=== PATIENT | female | born 1950 | race African-American/Black ===

== ENCOUNTER 2017-05-25 23:13 | Emergency (ER) | payer BC, OTHER ==
[~2017-05-25] VITALS: Ht 162.6 cm; Wt 65.9 kg
[~2017-05-25 23:13] MED LIST: CYCL10 PO; DIOVAN; LEVO100T4; PRED5
[2017-05-25] MEDS ORDERED: HYDR25TA PO (23:23)
[2017-05-25] MEDS ORDERED: HYDR10TA31 PO (23:23)
[2017-05-25] MEDS ORDERED: METO50 PO (23:23)
[2017-05-25] MEDS ORDERED: PRED5 PO (23:23)
[2017-05-25] MEDS ORDERED: LOSA50TA37 PO (23:23)
[2017-05-25] MEDS ORDERED: LEVO100 PO (23:23)
[2017-05-25] MEDS ORDERED: OxyCODONE HCL/ACETAMINOPHEN 5-325 MG TABLET PO ONE (23:45)
[2017-05-25] MEDS ORDERED: METHOCARBAMOL 500 MG TABLET PO ONE (23:45)
[2017-05-26 01:18] VITALS: BP 122/76
[2017-05-28] MEDS ORDERED: CYCL10 PO (13:57)
[2017-05-28] MEDS ORDERED: HYDR200T4 PO (13:57)
[2017-05-28] MEDS ORDERED: ASPI81 PO (13:57)
[2017-05-28] MEDS ORDERED: PRED5 PO (13:57)
[2017-05-28] MEDS ORDERED: LOSA50TA37 PO (13:57)
[2017-05-28] MEDS ORDERED: IBUP-2070 PO (13:57)
== END 2017-05-26 01:23 | disposition home or self-care (01) ==
LOC: EMS 23:15
DX: M54.12 Radiculopathy, cervical region (principal); I10 Essential (primary) hypertension; E03.9 Hypothyroidism, unspecified; Z88.0 Allergy status to penicillin; Z88.5 Allergy status to narcotic agent
CPT/HCPCS: 99283

== ENCOUNTER 2017-05-29 06:35 | Day surgery (SDC) | payer BC, OTHER ==
[~2017-05-29] VITALS: Ht 151.1 cm; Wt 65.5 kg
[~2017-05-29 06:35] MED LIST changes: +ASPI81 PO; -DIOVAN; +HYDR200T4 PO; +HYDR25TA PO; +IBUP-2070 PO; +LEVO100 PO; -LEVO100T4; +LOSA50TA37 PO; +METO50 PO; -PRED5; +PRED5 PO; +SODIUM CHLORIDE 0.9% 1,000 ML IV ONE
[2017-05-29] MEDS ORDERED: OXYC-38 PO (07:03)
== END 2017-05-29 09:40 | disposition home or self-care (01) ==
LOC: SURGERY 06:35
PROVIDERS: ATTEND Specialist
DX: K57.90 Diverticulosis of intestine, part unspecified, without perforation or abscess without bleeding (principal); K63.3 Ulcer of intestine; K64.1 Second degree hemorrhoids; D50.9 Iron deficiency anemia, unspecified; J44.9 Chronic obstructive pulmonary disease, unspecified; I10 Essential (primary) hypertension; K21.9 Gastro-esophageal reflux disease without esophagitis; E03.9 Hypothyroidism, unspecified; D86.9 Sarcoidosis, unspecified; F41.9 Anxiety disorder, unspecified; Z88.0 Allergy status to penicillin; Z88.8 Allergy status to other drugs, medicaments and biological substances; Z90.49 Acquired absence of other specified parts of digestive tract; Z98.890 Other specified postprocedural states; Z98.49 Cataract extraction status, unspecified eye; Z87.891 Personal history of nicotine dependence; Z79.01 Long term (current) use of anticoagulants; Z87.39 Personal history of other diseases of the musculoskeletal system and connective tissue
CPT/HCPCS: 45380; J7030; 88305

== ENCOUNTER 2017-06-19 06:30 | Day surgery (SDC) | payer BC, OTHER ==
[~2017-06-19] VITALS: Ht 152.4 cm; Wt 65.0 kg
[~2017-06-19 06:30] MED LIST changes: -ASPI81 PO; +FLUC100T PO; +OXYC-38 PO; -PRED5 PO
[2017-06-19] MEDS ORDERED: PROPOFOL 1% 20 ML VIAL IVP ONE (06:31)
[2017-06-19] MEDS ORDERED: SODIUM TETRADECYL SULFATE 3% 60 MG/2 ML VIAL IVP ONE (07:06)
== END 2017-06-19 08:55 | disposition home or self-care (01) ==
LOC: SURGERY 06:30
PROVIDERS: ATTEND Specialist
DX: K44.9 Diaphragmatic hernia without obstruction or gangrene (principal); K29.70 Gastritis, unspecified, without bleeding; K21.9 Gastro-esophageal reflux disease without esophagitis; D50.9 Iron deficiency anemia, unspecified; I10 Essential (primary) hypertension; D86.9 Sarcoidosis, unspecified; Z88.6 Allergy status to analgesic agent; Z88.0 Allergy status to penicillin; E03.9 Hypothyroidism, unspecified
CPT/HCPCS: 43239; 88305; 88312; J2704; J7030

== ENCOUNTER 2017-07-04 04:28 | Emergency (ER) | payer BC, OTHER ==
[~2017-07-04] VITALS: Ht 162.6 cm; Wt 66.0 kg
[~2017-07-04 04:28] MED LIST changes: -SODIUM CHLORIDE 0.9% 1,000 ML IV ONE
[2017-07-04] MEDS ORDERED: KETOROLAC TROMETHAMINE 30 MG/ML VIAL IVP ONE (06:15)
[2017-07-04] MEDS ORDERED: MORPHINE SULFATE 4 MG/ML SYRINGE IVP ONE (06:15)
[2017-07-04 07:01] VITALS: BP 143/92
== END 2017-07-04 07:50 | disposition home or self-care (01) ==
LOC: EMS 04:29
DX: M62.838 Other muscle spasm (principal); I10 Essential (primary) hypertension; E03.9 Hypothyroidism, unspecified; Z88.0 Allergy status to penicillin; Z88.5 Allergy status to narcotic agent
CPT/HCPCS: 96374; 96375; 99284; J1885; J2270

== ENCOUNTER 2017-12-20 12:10 | Emergency (ER) | payer MEDICARE, OTHER ==
[~2017-12-20] VITALS: Ht 157.5 cm; Wt 63.6 kg
[~2017-12-20 12:10] MED LIST changes: -FLUC100T PO
[2017-12-20 12:59] VITALS: BP 127/79
[2017-12-20] MEDS ORDERED: PredniSONE 20 MG TABLET PO ONE (13:30)
== END 2017-12-20 13:48 | disposition home or self-care (01) ==
LOC: EMS 12:11
DX: T63.441A Toxic effect of venom of bees, accidental (unintentional), initial encounter (principal); E03.9 Hypothyroidism, unspecified; I10 Essential (primary) hypertension; J45.909 Unspecified asthma, uncomplicated; M79.7 Fibromyalgia; Z88.0 Allergy status to penicillin; Z88.5 Allergy status to narcotic agent; Z90.49 Acquired absence of other specified parts of digestive tract; Y92.89 Other specified places as the place of occurrence of the external cause
CPT/HCPCS: 99283; J7512

== ENCOUNTER 2018-03-17 12:17 | Emergency (ER) | payer MEDICARE ==
[~2018-03-17] VITALS: Ht 154.9 cm; Wt 60.9 kg
[~2018-03-17 12:17] MED LIST changes: -CYCL10 PO; -IBUP-2070 PO; -OXYC-38 PO
[2018-03-17] MEDS ORDERED: FLUC100T PO (12:59)
[2018-03-17] MEDS ORDERED: LEVO2.5S4 PO (12:59)
[2018-03-17] MEDS ORDERED: AZIT250T9 PO (12:59)
[2018-03-17] MEDS ORDERED: TIZA4TAB4 PO (12:59)
[2018-03-17] MEDS ORDERED: HYDR-4061 PO (12:59)
[2018-03-17] MEDS ORDERED: ASPI-556 PO (12:59)
[2018-03-17] MEDS ORDERED: MethylPREDNISolone SOD SUCC 125 MG/2 ML VIAL IVP ONE (13:45)
[2018-03-17] MEDS ORDERED: IPRATROPIUM BROMIDE 0.5 MG/2.5 ML NEB SOLUTION NEB ONE (13:45)
[2018-03-17] MEDS ORDERED: ASPIRIN 81 MG CHEWABLE TABLET PO ONE (13:45)
[2018-03-17] MEDS ORDERED: KETOROLAC TROMETHAMINE 30 MG/ML VIAL IVP ONE (13:45)
[2018-03-17] MEDS ORDERED: ALBUTEROL SULFATE 5 MG/ML 20 ML NEB SOLN [BULK] NEB ONE (13:45)
[2018-03-17] MEDS ORDERED: 0.9% SODIUM CHLORIDE 15 ML NEB SOLUTION NEB ONE (14:16)
[2018-03-17 14:20] LABS: BASOPHILS % (AUTO) 0.1 % (0.0-2.0); EOSINOPHILS % (AUTO) 0.1 % (1.0-6.0); HEMATOCRIT 26.4 % (36-46); HEMOGLOBIN 8.6 g/dL (12.0-16.0); LYMPHOCYTES # (AUTO) 0.3 K/uL (1.0-4.8); LYMPHOCYTES % (AUTO) 1.5 % (22.0-44.0); MEAN CORPUSCULAR HEMOGLOBIN 27.6 pg (26.0-34.0); MEAN CORPUSCULAR HGB CONC 32.6 G/dL (31.0-37.0); MEAN CORPUSCULAR VOLUME 85 fL (80-100); MONOCYTES # (AUTO) 1.6 K/uL (0.1-1.0); MONOCYTES % (AUTO) 8.3 % (2.0-9.0); NEUTROPHILS # (AUTO) 17.4 K/uL (1.8-7.7); PLATELET COUNT (AUTO) 454 K/uL (150-450); RED BLOOD CELL COUNT(AUTO) 3.12 MIL/uL (4.00-5.20); RED CELL DISTRIBUTION WIDTH 20.1 % (11.5-14.5)
[2018-03-17 14:37] LABS: ANION GAP 5 mmol/L (8-16); CALCIUM, TOTAL 10.3 mg/dL (8.8-10.5); CARBON DIOXIDE 32 mmol/L (22-29); CHLORIDE 98 mmol/L (98-107); CREATININE 0.74 mg/dL (0.60-1.30); GLOMERULAR FILTR. RATE CALC > 60 mL/min (>60); GLUCOSE,RANDOM 146 mg/dL (70-110); POTASSIUM 3.8 mmol/L (3.5-5.1); SODIUM SERUM 135 mmol/L (136-145); UREA NITROGEN, BLOOD 18 mg/dL (7-18)
[2018-03-17 14:41] LABS: B-TYPE NATRIURETIC PEPTIDE 139 pg/mL (0-100)
[2018-03-17 14:44] LABS: ALANINE AMINOTRANSFERASE 18 U/L (12-78); ALBUMIN 2.7 g/dL (3.4-5.0); ALKALINE PHOSPHATASE 95 U/L (46-116); ASPARTATE AMINOTRANSFERASE 12 U/L (15-37); BILIRUBIN,TOTAL 0.3 mg/dL (0.1-1.0); CREATINE KINASE, TOTAL 30 U/L (26-192); TOTAL PROTEIN, SERUM 7.8 g/dL (6.4-8.2)
[2018-03-17] MEDS ORDERED: LEVO5TAB13 PO (15:41)
[2018-03-17] MEDS ORDERED: CefTRIAXone SODIUM 1 GM in DEXTROSE 5%-WATER 10 ML IV ONE (15:45)
[2018-03-17] MEDS ORDERED: ACETAMINOPHEN 325 MG TABLET PO PRN (15:45)
[2018-03-17] MEDS ORDERED: ONDANSETRON HCL 4 MG/2 ML VIAL IVP PRN (15:45)
[2018-03-17] MEDS ORDERED: 0.9% SODIUM CHLORIDE 10 ML SYRINGE IVP PRN (15:45)
[2018-03-17 16:16] LABS: APPEARANCE,URINE CLEAR (CLEAR); BILIRUBIN,URINE NEGATIVE (NEGATIVE); GLUCOSE, URINE (UA) NEGATIVE (NEGATIVE); KETONES,URINE NEGATIVE (NEGATIVE); LEUKOCYTE ESTERASE ,URINE NEGATIVE (NEGATIVE); NITRATE,URINE NEGATIVE (NEGATIVE); OCCULT BLOOD,URINE NEGATIVE (NEGATIVE); PROTEIN,URINE POS 1+ (NEGATIVE)
[2018-03-17] MEDS ORDERED: SODIUM CHLORIDE 0.9% 1,000 ML IV ONE (17:15)
[2018-03-17] MEDS ORDERED: SODIUM CHLORIDE 0.9% 2,000 ML IV ONE (17:15)
[2018-03-17] MEDS ORDERED: METOPROLOL TARTRATE 50 MG TABLET PO SCH (17:45)
[2018-03-17] MEDS ORDERED: LEVOTHYROXINE SODIUM 100 MCG TABLET PO SCH (17:45)
[2018-03-17] MEDS ORDERED: HYDROXYCHLOROQUINE SULFATE 200 MG TABLET PO SCH (17:45)
[2018-03-17] MEDS ORDERED: HYDROCHLOROTHIAZIDE 25 MG TABLET PO SCH (17:45)
[2018-03-17] MEDS ORDERED: FLUCONAZOLE 100 MG TABLET PO SCH (17:45)
[2018-03-17] MEDS ORDERED: ALBUTEROL SULFATE 2.5 MG/0.5 ML NEB SOLUTION NEB PRN (17:45)
[2018-03-17] MEDS ORDERED: TiZANidine HCL 4 MG TABLET PO PRN (17:45)
[2018-03-17] MEDS ORDERED: LOSARTAN POTASSIUM 50 MG TABLET PO SCH (17:45)
[2018-03-17 18:59] VITALS: BP 134/87
[2018-03-17] MEDS ORDERED: IPRATROPIUM BROMIDE 0.5 MG/2.5 ML NEB SOLUTION NEB SCH (20:00)
[2018-03-17] MEDS ORDERED: ALBUTEROL SULFATE 2.5 MG/0.5 ML NEB SOLUTION NEB SCH (20:00)
[2018-03-17] MEDS ORDERED: MethylPREDNISolone SOD SUCC 125 MG/2 ML VIAL IVP SCH (21:00)
== END 2018-03-17 21:41 | disposition short-term general hospital (02) ==
LOC: EMS 12:19
DX: A41.9 Sepsis, unspecified organism (principal); J18.9 Pneumonia, unspecified organism; J45.909 Unspecified asthma, uncomplicated; I10 Essential (primary) hypertension; E03.9 Hypothyroidism, unspecified; Z88.5 Allergy status to narcotic agent; Z88.0 Allergy status to penicillin; Z91.030 Bee allergy status
CPT/HCPCS: 36415; 71046; 80053; 81003; 82550; 83605; 83880; 84484; 85025; 87040; 87077; 87147; 87186; 87205; 93005; 94640; 96365; 96366; 96375; 99285; J0696; J1885; J2930; J7030; J7060

== ENCOUNTER → 2019-05-20 | Outpatient (CLI) | payer MEDICARE ==
[~2019-05-20] MED LIST changes: +FLUT1BLS3 IH; +LEVO5TAB13 PO; -LOSA50TA37 PO; +LOSA50TA64 PO
== END | disposition home or self-care (01) ==
LOC: RADPV 09:17
PROVIDERS: ATTEND Internal Medicine
DX: M81.0 Age-related osteoporosis without current pathological fracture (principal)
CPT/HCPCS: 77080

== ENCOUNTER 2020-06-30 17:33 | Inpatient (IN) | payer MEDICARE ==
[~2020-06-30] VITALS: Ht 154.9 cm; Wt 62.3 kg
[~2020-06-30 17:33] MED LIST changes: +HYDR-1475 PO; -HYDR25TA PO; +LOSA50TA37 PO; -LOSA50TA64 PO
[2020-06-30] MEDS ORDERED: TIZA2CAP PO (17:37)
[2020-06-30 18:25] LABS: BASOPHILS % (AUTO) 0.7 % (0.0-2.0); EOSINOPHILS % (AUTO) 1.7 % (1.0-6.0); HEMATOCRIT 26.5 % (36-46); HEMOGLOBIN 8.3 g/dL (12.0-16.0); LYMPHOCYTES # (AUTO) 0.5 K/uL (1.0-4.8); MEAN CORPUSCULAR HEMOGLOBIN 28.8 pg (26.0-34.0); MEAN CORPUSCULAR HGB CONC 31.2 G/dL (31.0-37.0); MEAN CORPUSCULAR VOLUME 92 fL (80-100); MONOCYTES # (AUTO) 1.1 K/uL (0.1-1.0); MONOCYTES % (AUTO) 8.7 % (2.0-9.0); NEUTROPHILS # (AUTO) 10.4 K/uL (1.8-7.7); NEUTROPHILS % (AUTO) 84.9 % (40.0-70.0); PLATELET COUNT (AUTO) 510 K/uL (150-450); RED BLOOD CELL COUNT(AUTO) 2.87 MIL/uL (4.00-5.20); RED CELL DISTRIBUTION WIDTH 16.3 % (11.5-14.5)
[2020-06-30 18:37] LABS: PROTHROMBIN TIME 10.5 SEC (9.4-11.6)
[2020-06-30 18:41] LABS: ANION GAP 10 mmol/L (8-16); CALCIUM, TOTAL 10.4 mg/dL (8.8-10.5); CARBON DIOXIDE 29 mmol/L (22-29); CHLORIDE 104 mmol/L (98-107); CREATININE 0.79 mg/dL (0.60-1.30); GLOMERULAR FILTR. RATE CALC > 60 mL/min (>60); GLUCOSE,RANDOM 132 mg/dL (70-110); POTASSIUM 3.4 mmol/L (3.5-5.1); SODIUM SERUM 143 mmol/L (136-145); UREA NITROGEN, BLOOD 14 mg/dL (7-18)
[2020-06-30 18:47] LABS: ALANINE AMINOTRANSFERASE 22 U/L (12-78); ALBUMIN 3.8 g/dL (3.4-5.0); ALKALINE PHOSPHATASE 73 U/L (46-116); ASPARTATE AMINOTRANSFERASE 23 U/L (15-37); BILIRUBIN,TOTAL 0.3 mg/dL (0.1-1.0); CREATINE KINASE, TOTAL ONLY 74 U/L (26-192); TOTAL PROTEIN, SERUM 7.1 g/dL (6.4-8.2)
[2020-06-30 19:10] LABS: B-TYPE NATRIURETIC PEPTIDE 18 pg/mL (0-100)
[2020-06-30] MEDS ORDERED: SODIUM CHLORIDE 0.9% 1,000 ML IV ONE (19:15)
[2020-06-30 19:34] LABS: APPEARANCE,URINE CLEAR (CLEAR); GLUCOSE, URINE (UA) NEGATIVE (NEGATIVE); KETONES,URINE NEGATIVE (NEGATIVE); LEUKOCYTE ESTERASE ,URINE NEGATIVE (NEGATIVE); NITRATE,URINE NEGATIVE (NEGATIVE); OCCULT BLOOD,URINE NEGATIVE (NEGATIVE); PROTEIN,URINE NEGATIVE (NEGATIVE)
[2020-06-30 19:43] LABS: BILIRUBIN,URINE PRELIM. POSITIVE (NEGATIVE)
[2020-06-30 19:54] LABS: BACTERIA,URINE None Seen /HPF (None Seen); RBC,URINE None Seen /HPF (0-2); SQUAMOUS EPITHELIAL CELL,UR Moderate /LPF (None Seen); WBC,URINE 0-2 /HPF (0-5)
[2020-06-30] MEDS ORDERED: ONDANSETRON HCL 4 MG/2 ML VIAL IVP PRN ×2 (20:15→21:00)
[2020-06-30] MEDS ORDERED: 0.9% SODIUM CHLORIDE 10 ML SYRINGE IVP PRN (20:15)
[2020-06-30] MEDS ORDERED: ACETAMINOPHEN 325 MG TABLET PO PRN (20:15)
[2020-06-30 21:17] LABS: % IRON SATURATION 4.2 % (22-44)
[2020-06-30 21:26] LABS: D-DIMER 0.86 mg/L FEU (0.00-0.50)
[2020-06-30 21:27] LABS: THYROID STIMULATING HORMONE 3.27 uIU/mL (0.36-3.74)
[2020-06-30] MEDS ORDERED: SODIUM CHLORIDE 0.9% 100 ML ONE (23:47)
[2020-06-30] MEDS ORDERED: IOVERSOL 350 MG/ML 100 ML VIAL ONE (23:47)
[2020-07-01] MEDS ORDERED: VANCOMYCIN HCL 1.5 GM in DEXTROSE 5%-WATER 250 ML IV SCH (06:00)
[2020-07-01] MEDS: LEVOTHYROXINE SODIUM 100 MCG TABLET PO SCH (06:16)
[2020-07-01] MEDS ORDERED: MISC MED-CONVERTED FROM AMBULATORY (Fluticasone/Umeclidin/Vilanter (Trelegy Ellipta 100-62 IH SCH (09:00)
[2020-07-01] MEDS ORDERED: HYDROCHLOROTHIAZIDE 25 MG TABLET PO SCH (09:00)
[2020-07-01] MEDS ORDERED: METOPROLOL TARTRATE 50 MG TABLET PO SCH (09:00)
[2020-07-01 09:39] LABS: ALANINE AMINOTRANSFERASE 17 U/L (12-78); ALBUMIN 3.6 g/dL (3.4-5.0); ALKALINE PHOSPHATASE 76 U/L (46-116); ANION GAP 7 mmol/L (8-16); ASPARTATE AMINOTRANSFERASE 14 U/L (15-37); BILIRUBIN,TOTAL 0.2 mg/dL (0.1-1.0); CALCIUM, TOTAL 9.8 mg/dL (8.8-10.5); CARBON DIOXIDE 29 mmol/L (22-29); CHLORIDE 104 mmol/L (98-107); CREATININE 0.69 mg/dL (0.60-1.30); GLOMERULAR FILTR. RATE CALC > 60 mL/min (>60); GLUCOSE,RANDOM 123 mg/dL (70-110); POTASSIUM 3.3 mmol/L (3.5-5.1); SODIUM SERUM 140 mmol/L (136-145); TOTAL PROTEIN, SERUM 6.9 g/dL (6.4-8.2); UREA NITROGEN, BLOOD 8 mg/dL (7-18)
[2020-07-01 10:06] LABS: BASOPHILS % (AUTO) 0.7 % (0.0-2.0); EOSINOPHILS % (AUTO) 2.5 % (1.0-6.0); HEMATOCRIT 25.7 % (36-46); HEMOGLOBIN 8.3 g/dL (12.0-16.0); LYMPHOCYTES # (AUTO) 0.7 K/uL (1.0-4.8); LYMPHOCYTES % (AUTO) 9.4 % (22.0-44.0); MEAN CORPUSCULAR HEMOGLOBIN 29.7 pg (26.0-34.0); MEAN CORPUSCULAR HGB CONC 32.2 G/dL (31.0-37.0); MEAN CORPUSCULAR VOLUME 92 fL (80-100); MONOCYTES # (AUTO) 0.8 K/uL (0.1-1.0); NEUTROPHILS # (AUTO) 5.9 K/uL (1.8-7.7); NEUTROPHILS % (AUTO) 77.4 % (40.0-70.0); PLATELET COUNT (AUTO) 486 K/uL (150-450); RED BLOOD CELL COUNT(AUTO) 2.78 MIL/uL (4.00-5.20); RED CELL DISTRIBUTION WIDTH 16.3 % (11.5-14.5)
[2020-07-01] MEDS: ACETAMINOPHEN 325 MG TABLET PO PRN ×2 (12:08→16:30)
[2020-07-01 15:37] VITALS: BP 125/73
[2020-07-01 16:06] VITALS: BP 125/73
[2020-07-01] MEDS: VANCOMYCIN HCL 750 MG in DEXTROSE 5%-WATER 250 ML IV SCH (20:11)
[2020-07-01 21:10] VITALS: BP 102/50
[2020-07-01] MEDS ORDERED: POTASSIUM CHLORIDE 20 MEQ ER TABLET PO ONE (23:15)
[2020-07-02 00:02] VITALS: BP 141/74
[2020-07-02 04:30] VITALS: BP 118/69
[2020-07-02] MEDS: LEVOTHYROXINE SODIUM 100 MCG TABLET PO SCH (06:20)
[2020-07-02 06:56] LABS: ANION GAP 5 mmol/L (8-16); CALCIUM, TOTAL 10.1 mg/dL (8.8-10.5); CARBON DIOXIDE 29 mmol/L (22-29); CHLORIDE 106 mmol/L (98-107); CREATININE 0.76 mg/dL (0.60-1.30); GLOMERULAR FILTR. RATE CALC > 60 mL/min (>60); GLUCOSE,RANDOM 89 mg/dL (70-110); POTASSIUM 4.4 mmol/L (3.5-5.1); SODIUM SERUM 140 mmol/L (136-145); UREA NITROGEN, BLOOD 13 mg/dL (7-18)
[2020-07-02] MEDS: VANCOMYCIN HCL 750 MG in DEXTROSE 5%-WATER 250 ML IV SCH (07:53)
[2020-07-02 08:13] VITALS: BP 139/80
[2020-07-02 11:44] LABS: BASOPHILS % (AUTO) 1.4 % (0.0-2.0); EOSINOPHILS % (AUTO) 6.4 % (1.0-6.0); HEMATOCRIT 24.5 % (36-46); HEMOGLOBIN 7.7 g/dL (12.0-16.0); LYMPHOCYTES # (AUTO) 0.7 K/uL (1.0-4.8); LYMPHOCYTES % (AUTO) 11.7 % (22.0-44.0); MEAN CORPUSCULAR HEMOGLOBIN 29.7 pg (26.0-34.0); MEAN CORPUSCULAR HGB CONC 31.6 G/dL (31.0-37.0); MEAN CORPUSCULAR VOLUME 94 fL (80-100); MONOCYTES # (AUTO) 0.8 K/uL (0.1-1.0); MONOCYTES % (AUTO) 12.2 % (2.0-9.0); NEUTROPHILS # (AUTO) 4.2 K/uL (1.8-7.7); NEUTROPHILS % (AUTO) 68.3 % (40.0-70.0); PLATELET COUNT (AUTO) 496 K/uL (150-450); RED BLOOD CELL COUNT(AUTO) 2.61 MIL/uL (4.00-5.20); RED CELL DISTRIBUTION WIDTH 16.6 % (11.5-14.5)
[2020-07-02] MEDS: ACETAMINOPHEN 325 MG TABLET PO PRN ×2 (13:23→21:50)
[2020-07-02 16:00] VITALS: BP 134/74
[2020-07-02] MEDS: HEPARIN SODIUM,PORCINE 5,000 UNITS/ML VIAL SQ SCH (16:53)
[2020-07-02 19:36] VITALS: BP 149/84
[2020-07-02] MEDS: ACYCLOVIR 200 MG CAPSULE PO SCH (20:23)
[2020-07-03] MEDS: HEPARIN SODIUM,PORCINE 5,000 UNITS/ML VIAL SQ SCH ×2 (00:34→08:07)
[2020-07-03 00:38] VITALS: BP 139/80
[2020-07-03] MEDS: ACETAMINOPHEN 325 MG TABLET PO PRN ×2 (05:13→12:16)
[2020-07-03] MEDS: LEVOTHYROXINE SODIUM 100 MCG TABLET PO SCH (06:19)
[2020-07-03 07:18] LABS: ANION GAP 7 mmol/L (8-16); CALCIUM, TOTAL 10.5 mg/dL (8.8-10.5); CARBON DIOXIDE 27 mmol/L (22-29); CHLORIDE 103 mmol/L (98-107); CREATININE 0.55 mg/dL (0.60-1.30); GLOMERULAR FILTR. RATE CALC > 60 mL/min (>60); GLUCOSE,RANDOM 85 mg/dL (70-110); POTASSIUM 4.1 mmol/L (3.5-5.1); SODIUM SERUM 137 mmol/L (136-145); UREA NITROGEN, BLOOD 10 mg/dL (7-18); VANCOMYCIN,RANDOM 4.7 mcg/mL (25.0-50.0)
[2020-07-03 08:00] VITALS: BP 132/82
[2020-07-03] MEDS: ACYCLOVIR 200 MG CAPSULE PO SCH (08:13)
[2020-07-03] MEDS ORDERED: ASPIRIN 81 MG CHEWABLE TABLET PO SCH (09:00)
[2020-07-03] MEDS ORDERED: FLUT16H NASAL (11:12)
[2020-07-03] MEDS ORDERED: TELM80TA10 PO (11:12)
[2020-07-03] MEDS ORDERED: METO-558 PO (11:12)
== END 2020-07-03 13:45 | disposition home or self-care (01) | DRG 315 ==
LOC: EMS 17:46 → 5S 20:50
PROVIDERS: ADMIT Internal Medicine; ATTEND Internal Medicine
DX: I95.9 Hypotension, unspecified (principal); R65.10 Systemic inflammatory response syndrome (SIRS) of non-infectious origin without acute organ dysfunction; E87.6 Hypokalemia; D63.8 Anemia in other chronic diseases classified elsewhere; I10 Essential (primary) hypertension; E03.9 Hypothyroidism, unspecified; M19.90 Unspecified osteoarthritis, unspecified site; J45.909 Unspecified asthma, uncomplicated; T50.995A Adverse effect of other drugs, medicaments and biological substances, initial encounter; Z90.49 Acquired absence of other specified parts of digestive tract; Z88.0 Allergy status to penicillin; Z88.5 Allergy status to narcotic agent; Z91.030 Bee allergy status; Z79.899 Other long term (current) drug therapy; Y92.89 Other specified places as the place of occurrence of the external cause
CPT/HCPCS: 70450; 71275; 83540; 83550; 83605; 84443; 85379; 87040; 93005; 93306; 93880; 99291; J1644; J2405; J3370; J7030; J7050; J7060; 36415-L1; 36415-TC; 71045-TC; 80202-TC

== ENCOUNTER 2022-11-27 11:54 | Emergency (ER) | payer MEDICARE ==
[~2022-11-27] VITALS: Ht 157.5 cm; Wt 55.5 kg
[~2022-11-27 11:54] MED LIST changes: -HYDR-1475 PO; -HYDR200T4 PO; -LEVO5TAB13 PO; -LOSA50TA37 PO; +METO-558 PO; -METO50 PO
[2022-11-27 13:51] LABS: BASOPHILS % (AUTO) 0.6 % (0.0-2.0); EOSINOPHILS % (AUTO) 2.1 % (1.0-6.0); HEMATOCRIT 29.3 % (36-46); HEMOGLOBIN 9.3 g/dL (12.0-16.0); LYMPHOCYTES # (AUTO) 0.4 K/uL (1.0-4.8); LYMPHOCYTES % (AUTO) 4.8 % (22.0-44.0); MEAN CORPUSCULAR HEMOGLOBIN 30.6 pg (26.0-34.0); MEAN CORPUSCULAR HGB CONC 31.7 G/dL (31.0-37.0); MEAN CORPUSCULAR VOLUME 97 fL (80-100); MONOCYTES # (AUTO) 0.8 K/uL (0.1-1.0); MONOCYTES % (AUTO) 9.9 % (2.0-9.0); NEUTROPHILS # (AUTO) 7.1 K/uL (1.8-7.7); NEUTROPHILS % (AUTO) 82.6 % (40.0-70.0); PLATELET COUNT (AUTO) 532 K/uL (150-450); RED BLOOD CELL COUNT(AUTO) 3.04 MIL/uL (4.00-5.20); RED CELL DISTRIBUTION WIDTH 15.7 % (11.5-14.5)
[2022-11-27 14:03] LABS: ANION GAP 7 mmol/L (8-16); CALCIUM, TOTAL 10.4 mg/dL (8.8-10.5); CARBON DIOXIDE 29 mmol/L (22-29); CHLORIDE 99 mmol/L (98-107); CREATININE 0.72 mg/dL (0.60-1.30); GLOMERULAR FILTR. RATE CALC > 60 mL/min (>60); GLUCOSE,RANDOM 99 mg/dL (70-110); POTASSIUM 3.1 mmol/L (3.5-5.1); SODIUM SERUM 135 mmol/L (136-145); UREA NITROGEN, BLOOD 20 mg/dL (7-18)
[2022-11-27 14:07] LABS: ALANINE AMINOTRANSFERASE 19 U/L (12-78); ALBUMIN 3.8 g/dL (3.4-5.0); ALKALINE PHOSPHATASE 71 U/L (46-116); ASPARTATE AMINOTRANSFERASE 19 U/L (15-37); BILIRUBIN,TOTAL 0.2 mg/dL (0.1-1.0); CREATINE KINASE, TOTAL ONLY 46 U/L (26-192); TOTAL PROTEIN, SERUM 7.7 g/dL (6.4-8.2)
[2022-11-27 14:12] LABS: B-TYPE NATRIURETIC PEPTIDE 14 pg/mL (0-100)
[2022-11-27 14:13] LABS: APPEARANCE,URINE CLEAR (CLEAR); BILIRUBIN,URINE NEGATIVE (NEGATIVE); GLUCOSE, URINE (UA) NEGATIVE (NEGATIVE); KETONES,URINE NEGATIVE (NEGATIVE); LEUKOCYTE ESTERASE ,URINE NEGATIVE (NEGATIVE); NITRATE,URINE NEGATIVE (NEGATIVE); OCCULT BLOOD,URINE NEGATIVE (NEGATIVE); PH,URINE 5.5 (5.0-8.0); PROTEIN,URINE TRACE mg/dL (NEGATIVE); SPECIFIC GRAVITIY, URINE 1.026 (1.003-1.030)
[2022-11-27 14:26] LABS: BACTERIA,URINE None Seen /HPF (None Seen); RBC,URINE None Seen /HPF (0-2); SQUAMOUS EPITHELIAL CELL,UR Few /LPF (None Seen); WBC,URINE 0-2 /HPF (0-5)
[2022-11-27] MEDS ORDERED: ACYC400T20 PO (14:44)
[2022-11-27] MEDS ORDERED: RALO60TA13 PO (14:44)
[2022-11-27] MEDS ORDERED: HYDR25TA PO (14:44)
[2022-11-27] MEDS ORDERED: TIZA-194 PO (14:44)
[2022-11-27] MEDS ORDERED: SODIUM,POTASSIUM PHOSPHATES POWDER PACKET PO ONE (14:45)
[2022-11-27 15:28] VITALS: BP 129/81
== END 2022-11-27 17:42 | disposition home or self-care (01) ==
LOC: EMS 11:54
DX: R42 Dizziness and giddiness (principal); M19.90 Unspecified osteoarthritis, unspecified site; J45.909 Unspecified asthma, uncomplicated; I10 Essential (primary) hypertension; E03.9 Hypothyroidism, unspecified; M79.7 Fibromyalgia; Z90.49 Acquired absence of other specified parts of digestive tract; Z98.890 Other specified postprocedural states; Z91.030 Bee allergy status; Z88.0 Allergy status to penicillin; Z88.5 Allergy status to narcotic agent
CPT/HCPCS: 71045; 80053; 81001; 82550; 83735; 83880; 84484; 85025; 93005; 99285; 36415-L1; 36415-TC

== ENCOUNTER 2024-06-29 19:09 | Emergency (ER) | payer MEDICARE ==
[~2024-06-29] VITALS: Ht 157.5 cm; Wt 54.5 kg
[~2024-06-29 19:09] MED LIST changes: +ACYC400T20 PO; +HYDR25TA PO; +METO-325 PO; -METO-558 PO; +RALO60TA13 PO; +TIZA-194 PO
[2024-06-29 19:45] VITALS: TEMP 97.9
[2024-06-29 22:33] VITALS: BP 179/89; PULSE 78; RESP 20; O2SAT 100
[2024-06-29] MEDS: KETOROLAC TROMETHAMINE 30 MG/ML VIAL IM ONE (22:57)
[2024-06-29] MEDS: DEXAMETHASONE SOD PHOS 4 MG/ML 5 ML VIAL IM ONE (22:58)
== END 2024-06-29 23:02 | disposition home or self-care (01) ==
LOC: EMS 19:09
DX: M16.11 Unilateral primary osteoarthritis, right hip (principal); I10 Essential (primary) hypertension; J45.909 Unspecified asthma, uncomplicated; Z88.0 Allergy status to penicillin; Z88.5 Allergy status to narcotic agent; Z91.030 Bee allergy status
CPT/HCPCS: 99284; 73502; 96372; J1100; J1885